=== PATIENT | female | born 1995 | race Caucasian/White ===

== ENCOUNTER 2020-12-06 10:16 | Emergency (ER) | payer OTHER ==
[2020-12-06 10:53] LABS: BASOPHIL 0.3 % (0-2); BILIRUBIN NEGATIVE (NEGATIVE); BLOOD TRACE-INTACT Ery/uL (NEGATIVE); CLARITY CLEAR (CLEAR); COLOR YELLOW (YELLOW); EOSINOPHIL 0.1 % (0-5); GLUCOSE (U) NORMAL (NORMAL); HCT 40.2 % (37.0-47.0); LEUKOCYTES NEGATIVE Leu/uL (NEGATIVE); LYMPHOCYTE 8.4 % (15-48); MCH 29.1 pg (25.0-31.0); MCHC 32.3 g/dL (32.0-36.0); MCV 89.9 fL (78.0-100.0); MPV 10.9 fL (6.0-9.5); NEUTROPHIL 87.7 % (41-80); NITRITE NEGATIVE (NEGATIVE); PLT 307 K/uL (150-400); PROTEIN NEGATIVE (NEGATIVE); RBC 4.47 M/uL (4.20-5.40); RDW 13.5 % (11.5-14.0); SPECIFIC GRAVITY >=1.030 (1.001-1.030); UROBILINOGEN 0.2 mg/dL (0.2-1.0); WBC 21.5 K/uL (4.0-10.5)
[2020-12-06 10:54] LABS: NRBC 0
[2020-12-06 11:27] LABS: ALBUMIN 3.4 g/dL (3.4-5.0); BILIRUBIN - TOTAL 0.4 mg/dL (0.2-1.0); BUN/CREAT RATIO (CALC) 13.8 RATIO; CREATININE 0.94 mg/dL (0.51-0.95); GLOBULIN (CALCULATION) 4.4 g/dL; POTASSIUM 3.9 mmol/L (3.5-5.1); TOTAL PROTEIN 7.8 g/dL (6.4-8.2)
[2020-12-06 11:37] LABS: URINARY RBC RARE
[2020-12-06] MEDS ORDERED: NORCO 5-325 TA1 EACH PO (14:00)
[2020-12-06] MEDS ORDERED: FLOMAX0.4 MG PO (14:00)
[2020-12-06] MEDS ORDERED: ZOFRAN4 M1 PO (14:00)
== END 2020-12-06 14:55 | disposition home or self-care (01) ==
LOC: FER 10:16
PROVIDERS: Internal Medicine
DX: N13.2 Hydronephrosis with renal and ureteral calculous obstruction (principal)
CPT/HCPCS: 36415; 80053; 81001; 82150; 83605; 83690; 85025; J1885; J2405; J7030